=== PATIENT | male | born 1950 | race Hispanic/Latino ===

== ENCOUNTER 2017-09-16 06:19 | Day surgery (SDC) | payer MEDICARE, OTHER ==
[2017-09-16] MEDS ORDERED: ECOTRIN PO NR (06:39)
[2017-09-16] MEDS ORDERED: NACL 0.9% 500 ML 500 ML IV SCH (07:00)
[2017-09-16 07:20] LABS: Basophils % (Auto) 0.5 % (0.0-1.8); Eosinophils # (Auto) 0.3 K/mm3 (0.0-0.4); Hematocrit 46.2 % (35.5-45.6); Lymphocytes # (Auto) 2.3 K/mm3 (1.2-5.4); Lymphocytes % (Auto) 27.2 % (13.4-35.0); Mean Corpuscular HGB Conc 35 % (32-34); Mean Corpuscular Hemoglobin 31 pg (28-32); Mean Corpuscular Volume 90 fl (84-94); Monocytes % (Auto) 11.7 % (0.0-7.3); Platelet Count 157 K/mm3 (140-440); Red Blood Count 5.15 M/mm3 (3.65-5.03)
[2017-09-16 07:31] LABS: INR 1.08 (0.87-1.13)
[2017-09-16 07:34] LABS: BUN/Creatinine Ratio 20; Blood Urea Nitrogen 18 mg/dL (9-20); Hemolysis Index 22
[2017-09-16] MEDS ORDERED: HumuLIN R ONE (07:52)
[2017-09-16] MEDS ORDERED: HumuLIN R SUB-Q NR (08:00)
[2017-09-16] MEDS ORDERED: HEPARIN/NS 5000 UNIT/500ML(CATH LAB) 1,000 ML IR ONE (08:08)
[2017-09-16] MEDS: VERSED ONE ×2 (08:41→08:53)
[2017-09-16] MEDS: SUBLIMAZE ONE ×2 (08:41→08:53)
[2017-09-16] MEDS: XYLOCAINE 1% 20 mL ONE ×2 (08:42→08:54)
[2017-09-16] MEDS: HEPARIN 10,000 UNITS/10 ML ONE ×3 (08:45→08:57)
[2017-09-16] MEDS: CALAN ONE ×3 (08:45→08:57)
[2017-09-16] MEDS: NITROGLYCERIN SYRINGE 3 ML ONE ×3 (08:48→08:57)
--- NOTE | 2017-09-16 09:45 | Discharge Summary ---
Short Stay Discharge Plan Activity: other (bed rest) Diet: low fat, low cholesterol, low salt, diabetic Wound: keep clean and dry Additional Instructions: OUTPATIENT CARDIAC CATH SHOWED 3 VESSEL DISEASE, TRANSFER TO [facility] FOR CABG. RECEIVING MD IS DR JOHN JIMÉNEZ. Follow up with: ZEYAD HARTMAN MD [Primary Care Provider] - 7 Days CHRIS SOLORIO MD [Staff Physician] - 7 Days
--- NOTE | 2017-09-16 09:47 | Cardiac Catherization Report ---
REASON FOR PROCEDURE: The patient is a 67-year-old man with coronary artery disease. He ostensibly underwent multivessel coronary angioplasty and stenting done at [facility] [place] just 6 months ago. He presents with continued angina, unstable symptoms despite medical therapy with beta-blockers and long-acting nitrates. Cardiac catheterization was recommended. DESCRIPTION OF PROCEDURE: The patient was prepped and draped in a sterile fashion after informed consent. The right radial cath site was prepped and draped after a negative Aurelio's test. The right radial artery was entered using the Seldinger technique followed by placement of a 6-Yi hydrophilic sheath. Routine radial cocktail was administered via the sheath. Left and right coronary angiography was performed using a #3.5 left Giovany catheter and a #4 right Giovany. A pigtail catheter was used for left ventricular angiography. The catheters were removed, sheath removed, and hemostasis achieved using manual compression. The patient was returned to the post-procedure unit in stable condition. There were no complications. FINDINGS: HEMODYNAMICS: Left ventricle end diastolic pressure was 21, following coronary angiography. Ascending aortic pressure was 165/79. There was no significant pressure gradient on pullback across the aortic valve. CORONARY ANGIOGRAPHY: The left main coronary artery was short, and contained diffuse mild atherosclerosis. The left anterior descending artery contained a long continuous stented segment, extending from its ostium to the mid LAD. There was diffuse moderate to severe in-stent restenosis extending from the proximal LAD, all the way through the stented segment. In the mid segment, at the distal stent border, there was a long up to 90% stenosis. The diffuse severe restenosis of the LAD was associated with delayed antegrade flow beyond the mid LAD. The circumflex was also noted for a long continuous stented segment extending from the ostium of the vessel, into the large obtuse marginal branch. There was a 95-99% proximal border restenosis of the circumflex artery stent, also associated with delayed antegrade flow into the circumflex system. The ostial circumflex restenosis as well as the proximal LAD in-stent restenosis, appeared to extend into the distal left main, consistent with a complex, distal left main involvement. The right coronary artery was dominant. This vessel contained a proximal 70-75% stenosis, close to its ostium, and associated with ventricularization of catheter tip pressures. Following this, there was diffuse mild to moderate atherosclerosis of the mid right coronary artery. The left ventricle was moderately to severely dilated. There was severe left ventricular systolic dysfunction with diffuse hypokinesis. There was hypo to akinesis of the left ventricular apex. Overall, left ventricular ejection fraction was less than 20%. CONCLUSION: 1. Severe 3-vessel coronary artery disease. 2. Severe diffuse in-stent restenosis of the long stented LAD vessel, with the stent extending from the ostium to the mid segment. 3. Severe proximal border restenosis of the circumflex artery, this vessel also contained a long stented segment extending from its ostium into the mid vessel. 4. Moderately severe, de ольга, disease of the proximal right coronary artery. 5. Ischemic cardiomyopathy with severe left ventricular systolic dysfunction, ejection fraction less than 20%. RECOMMENDATION: Optimal revascularization strategy will be coronary artery bypass surgery. DERRELL# [id number] GERHARD/SANDEEP BENNETT
[2017-09-16] MEDS ORDERED: IMDUR PO SCH (10:00)
[2017-09-16] MEDS ORDERED: LOPRESSOR PO SCH (10:00)
[2017-09-16] MEDS ORDERED: HEPARIN/ 0.45% NACL-25,000 UNIT/500 ML 25,000 UNIT/500 ML BAG IV SCH (10:00)
[2017-09-16] MEDS ORDERED: NACL 0.9% 1000 ML 1,000 ML IV SCH (10:00)
[2017-09-16] MEDS ORDERED: ULTRAM PO PRN (10:00)
[2017-09-16 11:31] LABS: Hematocrit 43.8 % (35.5-45.6); Hemoglobin 15.3 gm/dl (11.8-15.2)
[2017-09-16 11:42] LABS: INR 1.11 (0.87-1.13); Partial Thromboplastin Time 39.4 Sec. (24.2-36.6)
[2017-09-16 16:05] VITALS: BP 127/55
[2017-09-17] MEDS ORDERED: ASPIRIN PO SCH (10:00)
== END 2017-09-16 15:00 | disposition other institution (70) ==
LOC: CATHLABREC 06:19
PROVIDERS: ATTEND Internal Medicine Cardiovascular Disease
DX: T82.855A Stenosis of coronary artery stent, initial encounter (principal); I25.5 Ischemic cardiomyopathy; I11.0 Hypertensive heart disease with heart failure; I50.9 Heart failure, unspecified; I25.110 Atherosclerotic heart disease of native coronary artery with unstable angina pectoris; I48.2 Chronic atrial fibrillation; E78.5 Hyperlipidemia, unspecified; Z95.810 Presence of automatic (implantable) cardiac defibrillator; Y83.2 Surgical operation with anastomosis, bypass or graft as the cause of abnormal reaction of the patient, or of later complication, without mention of misadventure at the time of the procedure; Z79.01 Long term (current) use of anticoagulants; Z79.899 Other long term (current) drug therapy; Z87.891 Personal history of nicotine dependence
CPT/HCPCS: 36415; 80048; 82962; 85014; 85018; 85025; 85049; 85610; 85730; 93005; 93010; 93458; 96365; 96366; 96372; 99156; 99157; C1894; J1644; J2250; J3010; J7030; J7040; J1815; Q9967

== ENCOUNTER → 2020-12-21 | Outpatient (CLI) | payer MEDICARE, OTHER | END | disposition home or self-care (01) | LOC: SLR 11:00 | PROVIDERS: ATTEND Specialist | DX: G47.33 Obstructive sleep apnea (adult) (pediatric) (principal) | CPT/HCPCS: 95811 ==